=== PATIENT | female | born 1995 | race Caucasian/White ===

== ENCOUNTER → 2020-05-13 | Outpatient (CLI) | payer OTHER ==
[2020-05-13 17:06] LABS: BASO % 0.4 % (0.0-1.0); EOS # 0.3 10^3/uL (0.0-0.5); EOS % 3.2 % (0.0-3.0); HEMATOCRIT 34.1 % (36.0-47.0); HEMOGLOBIN 10.9 g/dl (12.0-15.5); LYMPH # 1.5 10^3/uL (1.5-5.0); MEAN CORPUSCULAR HEMOGLOBIN 30.7 pg (27.0-33.0); MEAN CORPUSCULAR VOLUME 96.1 fl (80.0-96.0); MONO # 0.9 10^3/uL (0.0-0.8); MONO % 9.7 % (0.0-5.0); NEUTROPHILS # 6.2 10^3/uL (1.5-8.5); NEUTROPHILS % 68.3 % (36.0-66.0); PLATELET COUNT, AUTOMATED 221 10^3/uL (150-450); RED BLOOD COUNT 3.55 10^6/uL (4.00-5.40); WHITE BLOOD COUNT 9.1 10^3/uL (4.0-10.0)
== END ==
LOC: M WUC 12:20
PROVIDERS: ATTEND Obstetrics & Gynecology
DX: Z34.92 Encounter for supervision of normal pregnancy, unspecified, second trimester (principal); Z3A.00 Weeks of gestation of pregnancy not specified

== ENCOUNTER 2021-10-28 00:26 | Emergency (ER) | payer OTHER ==
[~2021-10-28] VITALS: Ht 149.9 cm; Wt 45.7 kg
[2021-10-28] MEDS ORDERED: PRED20TA PO (00:49)
[2021-10-28 03:29] VITALS: BP 100/73
[2021-10-28] MEDS ORDERED: AUGM500T34 PO (03:44)
[2021-10-28] MEDS ORDERED: AUGMENTIN 875 MG TAB PO ONE (03:45)
== END 2021-10-28 04:00 | disposition home or self-care (01) ==
LOC: M ED 00:26
DX: L03.211 Cellulitis of face (principal); J30.81 Allergic rhinitis due to animal (cat) (dog) hair and dander

== ENCOUNTER 2021-10-30 07:26 | Emergency (ER) | payer OTHER ==
[~2021-10-30] VITALS: Ht 149.9 cm; Wt 45.1 kg
[~2021-10-30 07:26] MED LIST: AUGM500T34 PO; PRED20TA PO
[2021-10-30] MEDS ORDERED: methylPREDNISolone 125MG 2ML VIAL IV ONE (09:25)
[2021-10-30] MEDS ORDERED: ACETAMINOPHEN 325 MG TAB PO ONE (09:25)
[2021-10-30 10:26] LABS: BASO % 0.2 % (0.0-1.0); HEMATOCRIT 41.1 % (36.0-47.0); LYMPH # 0.9 10^3/uL (1.5-5.0); LYMPH % 6.2 % (24.0-44.0); MEAN CORPUSCULAR HGB CONC 34.1 g/dl (32.0-36.5); MEAN CORPUSCULAR VOLUME 91.1 fl (80.0-96.0); MONO # 0.4 10^3/uL (0.0-0.8); MONO % 3.1 % (2.0-8.0); NEUTROPHILS # 12.8 10^3/uL (1.5-8.5); NEUTROPHILS % 90.1 % (36.0-66.0); PLATELET COUNT, AUTOMATED 288 10^3/uL (150-450); RED BLOOD COUNT 4.51 10^6/uL (4.00-5.40); WHITE BLOOD COUNT 14.3 10^3/uL (4.0-10.0)
[2021-10-30 10:49] LABS: ERYTHROCYTE SEDIMENTATION RATE 4 mm/hr (0-20)
[2021-10-30 10:57] LABS: ALBUMIN 4.4 GM/DL (3.2-5.2); ALT/SGPT 22 U/L (12-78); BILIRUBIN,TOTAL 1.2 MG/DL (0.2-1.0); BLOOD UREA NITROGEN 13 MG/DL (7-18); CALCIUM LEVEL 9.7 MG/DL (8.5-10.1); CARBON DIOXIDE LEVEL 25 MEQ/L (21-32); CHLORIDE LEVEL 109 MEQ/L (98-107); CREATININE FOR GFR 0.71 MG/DL (0.55-1.30); GLOMERULAR FILTRATION RATE > 60.0 (>60); GLUCOSE, FASTING 97 MG/DL (70-100); POTASSIUM SERUM 3.5 MEQ/L (3.5-5.1); SODIUM LEVEL 141 MEQ/L (136-145); TOTAL PROTEIN 7.7 GM/DL (6.4-8.2)
[2021-10-30] MEDS ORDERED: CEPH500C PO (11:15)
[2021-10-30 11:27] VITALS: BP 122/76
== END 2021-10-30 11:30 | disposition home or self-care (01) ==
LOC: M ED 07:26
DX: K13.0 Diseases of lips (principal); J30.81 Allergic rhinitis due to animal (cat) (dog) hair and dander
CPT/HCPCS: 36415; 80053; 85025; 85652; 86140; 96374; 99284; J2930

== ENCOUNTER 2021-10-31 22:32 | Emergency (ER) | payer OTHER ==
[~2021-10-31] VITALS: Ht 149.9 cm; Wt 45.5 kg
[2021-10-31 22:32] VITALS: BP 138/87
[~2021-10-31 22:32] MED LIST changes: +CEPH500C PO
[2021-11-01] MEDS ORDERED: IBUP80TA PO (11:10)
[2021-11-01] MEDS ORDERED: CEPH500C PO (16:28)
== END 2021-10-31 23:47 | disposition left against medical advice (07) ==
LOC: M ED 22:32
DX: Z53.21 Procedure and treatment not carried out due to patient leaving prior to being seen by health care provider (principal)

== ENCOUNTER 2021-11-01 10:48 | Inpatient (IN) | payer OTHER ==
[~2021-11-01] VITALS: Ht 149.9 cm; Wt 45.2 kg
[2021-11-01] MEDS ORDERED: IBUP80TA PO (11:10)
[2021-11-01] MEDS ORDERED: KETOROLAC 30 MG/ML 1ML VIAL IV ONE (11:50)
[2021-11-01 12:45] LABS: BASO # 0.1 10^3/uL (0.0-0.2); BASO % 0.3 % (0.0-1.0); EOS # 0.1 10^3/uL (0.0-0.5); EOS % 0.5 % (0.0-3.0); HEMATOCRIT 38.6 % (36.0-47.0); HEMOGLOBIN 13.4 g/dl (12.0-15.5); LYMPH # 4.9 10^3/uL (1.5-5.0); LYMPH % 30.7 % (24.0-44.0); MEAN CORPUSCULAR HEMOGLOBIN 31.4 pg (27.0-33.0); MEAN CORPUSCULAR HGB CONC 34.7 g/dl (32.0-36.5); MEAN CORPUSCULAR VOLUME 90.4 fl (80.0-96.0); MONO % 9.9 % (2.0-8.0); NEUTROPHILS # 9.3 10^3/uL (1.5-8.5); NEUTROPHILS % 58.2 % (36.0-66.0); PLATELET COUNT, AUTOMATED 326 10^3/uL (150-450); RED BLOOD COUNT 4.27 10^6/uL (4.00-5.40); WHITE BLOOD COUNT 15.9 10^3/uL (4.0-10.0)
[2021-11-01 13:02] LABS: MONO # 1.6 10^3/uL (0.0-0.8)
[2021-11-01 13:06] LABS: BLOOD UREA NITROGEN 9 MG/DL (7-18); CALCIUM LEVEL 8.6 MG/DL (8.5-10.1); CARBON DIOXIDE LEVEL 28 MEQ/L (21-32); CHLORIDE LEVEL 107 MEQ/L (98-107); CREATININE FOR GFR 0.58 MG/DL (0.55-1.30); GLOMERULAR FILTRATION RATE > 60.0 (>60); GLUCOSE, FASTING 88 MG/DL (70-100); POTASSIUM SERUM 3.1 MEQ/L (3.5-5.1); SODIUM LEVEL 140 MEQ/L (136-145)
[2021-11-01 13:15] LABS: ERYTHROCYTE SEDIMENTATION RATE 6 mm/hr (0-20)
[2021-11-01] MEDS ORDERED: LIDOCAINE 1% MDV 20ML VIAL SC ONE (13:50)
[2021-11-01] MEDS ORDERED: CLINDAMYCIN 900 MG in IV 1 EA IV ONE (13:50)
[2021-11-01] MEDS ORDERED: MORPHINE 2 MG/ML 1ML VIAL IV ONE (14:20)
[2021-11-01] MEDS ORDERED: POTASSIUM CHLORIDE 10MEQ SR TABLET PO ONE (15:15)
[2021-11-01] MEDS ORDERED: VANCOMYCIN HCL 1,000 MG, VIAL MATE ADAPTER 1 EACH in D5W 250 ML IV ONE (15:30)
[2021-11-01] MEDS ORDERED: ISOVUE-370 76% 100ML VIAL As Ordered ONE (15:36)
[2021-11-01] MEDS ORDERED: MORPHINE 4 MG/ML 1ML VIAL/SYRINGE IV PRN (15:55)
[2021-11-01] MEDS ORDERED: MORPHINE 2 MG/ML 1ML VIAL IV PRN (15:55)
[2021-11-01] MEDS: ACETAMINOPHEN 500 MG TAB PO SCH ×2 (16:00→20:00)
[2021-11-01] MEDS: dexameTHASONE 20MG/5ML VIAL (J1100 PER 1MG) IV SCH (16:23)
[2021-11-01] MEDS ORDERED: CEPH500C PO (16:28)
[2021-11-01] MEDS ORDERED: HOME MED LIST COMPLETE! XX SCH (16:30)
[2021-11-01] MEDS ORDERED: diphenhydrAMINE 50MG/ML VIAL (J1200) IV STA (17:35)
[2021-11-01] MEDS ORDERED: VANCOMYCIN HCL 1,000 MG, VIAL MATE ADAPTER 1 EACH in NS 250 ML IV SCH (21:00)
[2021-11-01] MEDS ORDERED: cefTRIAXone SOD 2 GM in D5W MINI-BAG PLUS 50 ML IV SCH (21:00)
[2021-11-01] MEDS: KETOROLAC 30 MG/ML 1ML VIAL IV PRN (21:23)
[2021-11-01] MEDS: HEPARIN SOD (PORCINE) 5000UNITS/ML 1ML VIAL/SYRINGE SQ SCH (21:48)
[2021-11-02] MEDS: dexameTHASONE 20MG/5ML VIAL (J1100 PER 1MG) IV SCH ×4 (00:34→23:06)
[2021-11-02] MEDS: ACETAMINOPHEN 500 MG TAB PO SCH ×6 (00:34→20:20)
[2021-11-02 01:36] VITALS: BP 97/53
[2021-11-02] MEDS: HEPARIN SOD (PORCINE) 5000UNITS/ML 1ML VIAL/SYRINGE SQ SCH ×3 (05:59→21:14)
[2021-11-02 06:00] VITALS: BP 113/63
[2021-11-02 06:17] LABS: BASO % 0.1 % (0.0-1.0); HEMATOCRIT 39.7 % (36.0-47.0); HEMOGLOBIN 13.4 g/dl (12.0-15.5); LYMPH # 0.7 10^3/uL (1.5-5.0); LYMPH % 4.5 % (24.0-44.0); MEAN CORPUSCULAR HEMOGLOBIN 30.9 pg (27.0-33.0); MEAN CORPUSCULAR HGB CONC 33.8 g/dl (32.0-36.5); MEAN CORPUSCULAR VOLUME 91.5 fl (80.0-96.0); MONO # 0.2 10^3/uL (0.0-0.8); MONO % 1.5 % (2.0-8.0); NEUTROPHILS # 14.3 10^3/uL (1.5-8.5); NEUTROPHILS % 93.3 % (36.0-66.0); PLATELET COUNT, AUTOMATED 328 10^3/uL (150-450); RED BLOOD COUNT 4.34 10^6/uL (4.00-5.40); WHITE BLOOD COUNT 15.3 10^3/uL (4.0-10.0)
[2021-11-02 06:39] LABS: BLOOD UREA NITROGEN 11 MG/DL (7-18); CALCIUM LEVEL 9.4 MG/DL (8.5-10.1); CARBON DIOXIDE LEVEL 25 MEQ/L (21-32); CHLORIDE LEVEL 108 MEQ/L (98-107); GLOMERULAR FILTRATION RATE > 60.0 (>60); GLUCOSE, FASTING 131 MG/DL (70-100); MAGNESIUM LEVEL 2.4 MG/DL (1.8-2.4); PHOSPHORUS LEVEL 3.2 MG/DL (2.5-4.9); POTASSIUM SERUM 4.3 MEQ/L (3.5-5.1); SODIUM LEVEL 139 MEQ/L (136-145)
[2021-11-02] MEDS: LINEZOLID 600 MG in IV 1 EA IV SCH ×2 (08:17→20:21)
[2021-11-02] MEDS ORDERED: ZYVO1TAB PO (10:20)
[2021-11-02 14:00] VITALS: BP 116/69
[2021-11-02] MEDS: KETOROLAC 30 MG/ML 1ML VIAL IV PRN (15:03)
[2021-11-02 20:52] VITALS: BP 118/62
[2021-11-03] MEDS: ACETAMINOPHEN 500 MG TAB PO SCH ×5 (00:44→16:15)
[2021-11-03] MEDS: HEPARIN SOD (PORCINE) 5000UNITS/ML 1ML VIAL/SYRINGE SQ SCH ×2 (05:17→13:09)
[2021-11-03] MEDS: KETOROLAC 30 MG/ML 1ML VIAL IV PRN (05:34)
[2021-11-03 05:35] VITALS: BP 106/54
[2021-11-03 06:37] LABS: HEMATOCRIT 37.3 % (36.0-47.0); HEMOGLOBIN 12.9 g/dl (12.0-15.5); MEAN CORPUSCULAR HEMOGLOBIN 31.1 pg (27.0-33.0); MEAN CORPUSCULAR HGB CONC 34.6 g/dl (32.0-36.5); MEAN CORPUSCULAR VOLUME 89.9 fl (80.0-96.0); PLATELET COUNT, AUTOMATED 336 10^3/uL (150-450); RED BLOOD COUNT 4.15 10^6/uL (4.00-5.40); WHITE BLOOD COUNT 24.9 10^3/uL (4.0-10.0)
[2021-11-03 07:02] LABS: BLOOD UREA NITROGEN 11 MG/DL (7-18); CALCIUM LEVEL 9.2 MG/DL (8.5-10.1); CARBON DIOXIDE LEVEL 23 MEQ/L (21-32); CHLORIDE LEVEL 109 MEQ/L (98-107); CREATININE FOR GFR 0.62 MG/DL (0.55-1.30); GLOMERULAR FILTRATION RATE > 60.0 (>60); GLUCOSE, FASTING 141 MG/DL (70-100); MAGNESIUM LEVEL 2.2 MG/DL (1.8-2.4); PHOSPHORUS LEVEL 3.8 MG/DL (2.5-4.9); POTASSIUM SERUM 4.1 MEQ/L (3.5-5.1); SODIUM LEVEL 140 MEQ/L (136-145)
[2021-11-03] MEDS: dexameTHASONE 20MG/5ML VIAL (J1100 PER 1MG) IV SCH ×2 (09:46→16:15)
[2021-11-03] MEDS: LINEZOLID 600 MG in IV 1 EA IV SCH (10:18)
[2021-11-03 12:00] VITALS: BP 103/61
[2021-11-03 14:00] VITALS: BP 113/61
[2021-11-03] MEDS ORDERED: MUPI2OI TOP (16:36)
[2021-11-03] MEDS ORDERED: BACITAB PO (17:36)
[2021-11-03] MEDS ORDERED: MUPIROCIN 2% OINT 22 GM TUBE TOP SCH (21:00)
== END 2021-11-03 17:05 | disposition home or self-care (01) | DRG 383 ==
LOC: M ED 10:48 → M ED INP 15:40 → ENRESERV 18:35 → ENRESERVTM 11-02 00:19 → ENRESERVDT 11-02 00:19 → M MSPAV 11-02 01:33
PROVIDERS: ADMIT Internal Medicine; ATTEND Internal Medicine
DX: L03.211 Cellulitis of face (principal); D72.829 Elevated white blood cell count, unspecified; Z20.822 Contact with and (suspected) exposure to COVID-19; Z79.2 Long term (current) use of antibiotics; Z79.899 Other long term (current) drug therapy; Z88.1 Allergy status to other antibiotic agents; R19.7 Diarrhea, unspecified; F17.200 Nicotine dependence, unspecified, uncomplicated; W57.XXXA Bitten or stung by nonvenomous insect and other nonvenomous arthropods, initial encounter; Y92.9 Unspecified place or not applicable